=== PATIENT | female | born 1980 | race American Indian/Alaskan Native ===

== ENCOUNTER 2017-10-13 09:28 | Outpatient (CLI) | payer SELFPAY ==
[2017-10-13 12:20] VITALS: BP 112/61
--- NOTE | 2017-10-13 12:48 | Ultrasound Report ---
ULTRASOUND BIOPHYSICAL PROFILE: History: ZAC, variables Technique: Transabdominal ultrasound with Doppler interrogation. 2 - breathing movements 2 - movements 2 - posture and tone 2 - Qualitative amniotic fluid volume 8 - TOTAL SCORE OF POSSIBLE 8 Heart Rate (bpm) 143
--- NOTE | 2017-10-13 12:49 | Ultrasound Report ---
ULTRASOUND OB LIMITED History: ZAC and variables Technique: Transabdominal ultrasound with Doppler interrogation. Gestation: Single Position: Cephalic Amniotic Fluid: Within normal limits ZAC = 13.8 cm Heart Rate: 143 BPM
== END 2017-10-13 12:40 | disposition home or self-care (01) ==
LOC: TRG 09:28
PROVIDERS: ATTEND Obstetrics & Gynecology
DX: O47.1 False labor at or after 37 completed weeks of gestation (principal); Z3A.39 39 weeks gestation of pregnancy
CPT/HCPCS: 59025; 76815; 76819

== ENCOUNTER 2017-10-14 05:58 | Inpatient (IN) | payer SELFPAY ==
[2017-10-14] MEDS ORDERED: MINERAL OIL PO PRN (06:18)
[2017-10-14] MEDS ORDERED: ePHEDrine SULFATE IV PRN ×2 (06:18→09:00)
[2017-10-14] MEDS ORDERED: XYLOCAINE 2% INFILTRATI ONE (06:18)
[2017-10-14] MEDS ORDERED: BRETHINE IVP PRN (06:18)
[2017-10-14] MEDS ORDERED: STADOL IV PRN (06:18)
[2017-10-14] MEDS ORDERED: POLYCILLIN/NS 2 GM/100 ML 2 GM/100 ML BAG IV ONE (06:18)
[2017-10-14] MEDS ORDERED: BRETHINE SUB-Q PRN (06:18)
[2017-10-14] MEDS: LACTATED RINGERS 1,000 ML IV SCH ×3 (06:30→08:52)
[2017-10-14 06:47] LABS: Hemoglobin 12.6 gm/dl (10.1-14.3); Mean Corpuscular HGB Conc 33 % (30-34); Mean Corpuscular Hemoglobin 26 pg (28-32); Mean Corpuscular Volume 80 fl (79-97); Red Blood Count 4.78 M/mm3 (3.65-5.03); Red Cell Distribution Width 17.6 % (13.2-15.2)
--- NOTE | 2017-10-14 06:52 | History and Physical Report ---
History of Present Illness Date of admission: 10/14/17 06:36 Chief complaint: uterine contractions History of present illness: 36yo at 39 2/7weeks presents in labor /-2, GBS+ She was admitted with routine labs and ampicillin for GBS prophylaxis. She denies any vaginal bleeding, loss of fluid and reports good movement. She is a patient at [facility]. Past History Past Surgical History: no surgical history - Obstetrical History : 2 Hx # Term Pregnancies: 1 #1 Method of Delivery: Vaginal Medications and Allergies Allergies Allergy/AdvReac Type Severity Reaction Status Date / Time shellfish derived Allergy Itching Verified 10/13/17 10:13 Home Medications Medication Instructions Recorded Confirmed Last Taken Type Vit-Fe Fumar-FA [ 1 tab PO QDAY 10/13/17 10/13/17 10/12/17 21: 00 History Vitamin] 1 Active Meds: Active Medications Butorphanol Tartrate (Stadol) 2 mg IV Q2H PRN PRN Reason: Pain , Severe (7-10) Ephedrine Sulfate (Ephedrine Sulfate) 10 mg IV Q2M PRN PRN Reason: Hypotension Ampicillin Sodium (Ampicillin/Ns 1 Gm/50 Ml) 1 gm in 50 mls @ 100 mls/hr IV Q4HR [place]; Protocol Ampicillin Sodium (Polycillin/Ns 2 Gm/100 Ml) 2 gm in 100 mls @ 100 mls/hr IV ONCE ONE; Protocol Stop: 10/14/17 07:17 Lactated Ringer's (Lactated Ringers) 1,000 mls @ 125 mls/hr IV DIRECT [place] Last Admin: 10/14/17 06:30 Dose: 125 mls/hr Oxytocin/Sodium Chloride (Pitocin/Ns 20 Unit/1000ml Drip) 20 units in 1,000 mls @ 125 mls/hr IV DIRECT [place] Mineral Oil (Mineral Oil) 30 ml PO QHS PRN PRN Reason: Constipation Terbutaline Sulfate (Brethine) 0.25 mg SUB-Q ONCE PRN PRN Reason: Hyperstimulation/Hypertonicity Terbutaline Sulfate (Brethine) 0.25 mg IVP ONCE PRN PRN Reason: Hyperstimulation/Hypertonicity - Vital Signs Vital signs: Vital Signs Pulse BP 100 H 119/71 10/14/17 06:20 10/14/17 06:20 Temp Pulse Resp BP Pulse Ox 100 H 119/71 10/14/17 06:20 10/14/17 06:20 - Obstetrical FHR: auscultation normal Uterine Contraction Pattern: Irregular Results Result Diagrams: 10/14/17 06:30 All other labs normal. Assessment and Plan - Patient Problems (1) 39 weeks gestation of Current Visit: Yes Status: Acute Plan to address problem: Routine labs Stadol for pain Anticipate (2) Thrombocytopenia Current Visit: Yes Status: Acute Plan to address problem: Asymptomatic - will monitor. Repeat platelets . (3) GBS bacteriuria Current Visit: Yes Status: Acute Plan to address problem: Ampicillin for GBS prophylaxis.
[2017-10-14 06:56] LABS: Platelet Count 125 K/mm3 (140-440)
[2017-10-14] MEDS ORDERED: PITOCin/NS 20 UNIT/1000ML DRIP 20 UNITS/1,000 ML BAG IV SCH (07:00)
--- NOTE | 2017-10-14 08:48 | Anesthesia Consultation ---
Anesthesia Consult and Med Hx Date of service: 10/14/17 - Airway Anesthetic Teeth Evaluation: Good ROM Head & Neck: Adequate Mental/Hyoid Distance: Adequate Mallampati Class: Class II Intubation Access Assessment: Probably Good - Pre-Operative Health Status ASA Pre-Surgery Classification: ASA2 Proposed Anesthetic Plan: Epidural, Spinal - Pulmonary Hx Asthma: No COPD: No Hx Pneumonia: No - Cardiovascular System Hx Hypertension: No - Central Nervous System Hx Seizures: No Hx Psychiatric Problems: No - Endocrine Hx Renal Disease: No Hx End Stage Renal Disease: No Hx Hypothyroidism: No Hx Hyperthyroidism: No - Hematic Hx Anemia: No Hx Sickle Cell Disease: No - Other Systems Hx Alcohol Use: No
[2017-10-14] MEDS ORDERED: fentaNYL-BUPIV 2 MCG/ML-0.125% 200 MCG/100 ML BAG EPIDURAL SCH (09:00)
[2017-10-14] MEDS ORDERED: NARCAN 2 MG/2 ML IV PRN (09:00)
[2017-10-14] MEDS ORDERED: PITOCin/NS 30 UNIT/500ML 30 UNITS/500 ML BAG IV SCH (10:00)
[2017-10-14] MEDS ORDERED: AMPICILLIN/NS 1 GM/50 ML 1 GM/50 ML BAG IV SCH (10:19)
--- NOTE | 2017-10-14 14:34 | Procedure Note ---
OB Delivery Note - Delivery Date of Delivery: 10/14/17 (14:19) Surgeon: BEATRICE BECK (CHASITY) Estimated blood loss: 100cc - Vaginal Delivery presentation: vertex Delivery position: OA Intrapartum events: none Delivery induction: none Delivery augmentation: pitocin Delivery monitor: external FHT, external uterine Route of delivery: (14:19) Delivery placenta: spontaneous (14:24) Delivery cord: 3 umbilical vessels Delivery laceration: 1st degree (small, left unrepaired) Anesthesia: none, epidural Delivery comments: viable female SPRING position at 14:19 under epidural anesthesia. placed [id number] on mothers abdomen. Delayed cord clamping. Cut by pt' s sister in law with guidance. Spontaneous jones delivery of intact placenta at 14:24. 3VC. Cord blood collected per hospital protocol. FF@U-2, small lochia. Small 1st degree perineal laceration left unrepaired. EBL 100ml. - A at 1 minute: 8 at 5 minutes: 9 Gender: Female (6lbs 9oz, 2981 grams, 19")
[2017-10-14] MEDS ORDERED: TUCKS PAD TP PRN (14:35)
[2017-10-14] MEDS ORDERED: DULCOLAX PR PRN (14:35)
[2017-10-14] MEDS ORDERED: NORCO 5/325 PO PRN (14:35)
[2017-10-14] MEDS ORDERED: TYLENOL PO PRN (14:35)
[2017-10-14] MEDS ORDERED: MILK OF MAGNESIA PO PRN (14:35)
[2017-10-14] MEDS ORDERED: PHENERGAN PO PRN (14:35)
[2017-10-14] MEDS ORDERED: BENADRYL PO PRN (14:35)
[2017-10-14] MEDS ORDERED: LANSINOH TP PRN (14:35)
[2017-10-14] MEDS ORDERED: SODIUM CHLORIDE FLUSH SYRINGE 10 ML IV NR (15:00)
[2017-10-14] MEDS: MOTRIN PO SCH ×2 (17:39→23:57)
[2017-10-15 02:48] LABS: Hematocrit 34.6 % (30.3-42.9); Hemoglobin 11.2 gm/dl (10.1-14.3)
[2017-10-15] MEDS: MOTRIN PO SCH ×2 (05:59→12:30)
[2017-10-15] MEDS ORDERED: DEPO-PROVERA (CONTRACEPTION) IM ONE ×2 (10:20→19:00)
--- NOTE | 2017-10-15 10:24 | Progress Note ---
Assessment and Plan A: PP Day #1 Stable P: Follow Routine Orders Depo Provera prior to discharge D/C home to per patient request RTO in 6 Weeks Subjective - Subjective Date of service: 10/15/17 Patient reports: appetite normal, voiding normally, pain well controlled, flatus , bowel movement, ambulating normally [place]: doing well Objective - Vital Signs Latest vital signs: Vital Signs Temp Pulse Resp BP BP Pulse Ox 10/15/17 05:59 18 10/15/17 00:30 98.6 F 77 16 101/79 10/14/17 19:30 98.7 F 71 16 99/78 10/14/17 17:39 20 10/14/17 16:38 99.4 F 76 20 119/68 100 10/14/17 16:06 79 100 10/14/17 16:01 78 120/57 100 10/14/17 15:56 89 98 10/14/17 15:51 91 H 100 10/14/17 15:46 84 131/61 100 10/14/17 15:45 98.7 F 10/14/17 15:41 80 100 10/14/17 15:36 81 100 10/14/17 15:31 81 138/62 100 10/14/17 15:26 89 100 10/14/17 15:16 92 H 135/67 10/14/17 15:01 84 133/70 10/14/17 14:50 94 10/14/17 14:47 87 100 10/14/17 14:42 93 H 100 10/14/17 14:39 97.7 F 10/14/17 14:37 93 H 100 10/14/17 14:31 89 86 10/14/17 14:28 99 H 100 10/14/17 14:23 89 99 10/14/17 14:19 130 H 227/143 10/14/17 14:18 126 H 99 10/14/17 14:13 93 H 100 10/14/17 14:10 96 H 135/78 10/14/17 14:08 99 H 100 10/14/17 14:04 89 134/58 10/14/17 14:03 85 100 10/14/17 13:59 86 132/60 10/14/17 13:58 82 100 10/14/17 13:54 86 119/83 07/24/18 13:53 89 100 07/24/18 13:50 82 147/59 07/24/18 13:48 89 100 07/24/18 13:45 85 113/60 07/24/18 13:43 83 100 07/24/18 13:41 76 124/69 07/24/18 13:38 75 100 07/24/18 13:34 75 111/68 07/24/18 13:33 77 100 07/24/18 13:29 75 115/64 07/24/18 13:28 77 100 07/24/18 13:24 81 119/67 07/24/18 13:23 89 100 07/24/18 13:21 83 130/64 07/24/18 13:18 92 H 100 07/24/18 13:14 80 124/63 07/24/18 13:13 83 100 07/24/18 13:11 74 123/62 07/24/18 13:08 72 100 07/24/18 13:05 78 105/64 07/24/18 13:03 78 100 07/24/18 12:59 75 110/63 07/24/18 12:58 77 100 07/24/18 12:53 90 100 07/24/18 12:49 82 115/70 07/24/18 12:48 81 100 07/24/18 12:45 74 119/61 07/24/18 12:43 83 100 07/24/18 12:40 81 127/66 07/24/18 12:38 88 100 07/24/18 12:35 73 123/60 07/24/18 12:33 89 99 07/24/18 12:30 69 117/72 07/24/18 12:28 113 H 100 07/24/18 12:24 81 114/73 07/24/18 12:23 84 100 07/24/18 12:19 90 114/70 07/24/18 12:18 102 H 100 07/24/18 12:15 85 116/73 07/24/18 12:13 80 100 07/24/18 12:09 82 110/71 07/24/18 12:08 74 100 07/24/18 12:04 110 H 96/62 07/24/18 12:03 111 H 100 07/24/18 11:59 91 H 122/67 87 07/24/18 11:58 86 100 07/24/18 11:55 88 111/73 10/14/17 11:53 118 H 100 10/14/17 11:49 109 H 72/46 10/14/17 11:48 123 H 100 10/14/17 11:45 75 119/70 10/14/17 11:43 98 H 100 10/14/17 11:39 70 112/67 10/14/17 11:38 78 100 10/14/17 11:33 88 100 10/14/17 11:32 110 H 87 10/14/17 11:29 80 111/66 10/14/17 11:28 84 100 10/14/17 11:27 104 H 0 L 10/14/17 11:24 84 121/68 10/14/17 11:23 124 H 100 10/14/17 11:18 76 100 10/14/17 11:15 94 10/14/17 11:13 93 H 100 10/14/17 11:10 64 77 L 10/14/17 11:09 86 105/58 10/14/17 11:08 100 10/14/17 11:04 95 H 115/73 10/14/17 11:03 91 H 100 10/14/17 10:59 100 H 115/68 78 L 10/14/17 10:58 90 99 10/14/17 10:55 81 124/57 10/14/17 10:53 92 H 100 10/14/17 10:50 84 112/70 10/14/17 10:48 93 H 100 10/14/17 10:44 75 123/69 10/14/17 10:43 89 100 10/14/17 10:39 65 117/67 10/14/17 10:38 69 100 10/14/17 10:35 63 112/67 10/14/17 10:33 67 100 10/14/17 10:29 67 110/65 10/14/17 10:28 70 100 10/14/17 10:24 63 110/64 Intake and Output 10/14/17 10/15/17 10/15/17 22:59 06:59 14:59 Intake Total 240 500 Output Total 800 Balance -560 500 Intake: Oral 240 200 Intake, Free Water 300 Output: Urine 800 Void 800 Other: Total, Intake Amount 240 200 Total, Output Amount 800 # Voids Void 1 - Exam Breasts: Present: normal Cardiovascular: Present: Regular rate Lungs: Present: Clear to auscultation, Normal air movement Abdomen: Present: normal appearance, soft, normal bowel sounds Uterus: Present: normal, firm, fundal height below umbilicus Extremities: Present: normal
--- NOTE | 2017-10-15 10:25 | Discharge Summary ---
Providers - Providers Date of Admission: 10/14/17 06:36 Date of discharge: 10/15/17 Attending physician: MARTIN ROJAS MD Primary care physician: MARTIN ROJAS MD Hospitalization Reason for admission: active labor Delivery: Episiotomy: none Laceration: 1st degree Other procedures: none complications: none Discharge diagnosis: IUP at term delivered [place] baby: female Condition at discharge: Good Disposition: DC-01 TO HOME OR SELFCARE Plan - Provider Discharge Summary Activity: routine, no sex for 6 weeks, no heavy lifting 4 weeks, no strenuous exercise Diet: routine Instructions: routine Additional instructions: [] Smoking cessation referral if applicable(refer to patient education folder for contact #) [] Refer to [facility]'s [facility] Booklet Call your doctor immediately for: * Fever > 100.5 * Heavy vaginal bleeding ( >1 pad per hour) * Severe persistent headache * Shortness of breath * Reddened, hot, painful area to leg or breast * Drainage or odor from incision. * Keep incision clean and dry at all times and follow doctor's instructions regarding bathing/showering - Follow up plan Follow up: MARTIN ROJAS MD [Primary Care Provider] - 6 Weeks
[2017-10-15 18:43] VITALS: BP 105/72
== END 2017-10-15 20:30 | disposition home or self-care (01) | DRG 775 ==
LOC: TRG 05:58 → LD 06:36 → TRG 06:36 → OB 16:28
PROVIDERS: ADMIT Obstetrics & Gynecology; ATTEND Obstetrics & Gynecology
PROC: 10E0XZZ Delivery of Products of Conception, External Approach (ICD-10-PCS; principal; 2017-10-14)
PROC: 3E0R3BZ Introduction of Anesthetic Agent into Spinal Canal, Percutaneous Approach (ICD-10-PCS; 2017-10-14)
PROC: 00HU33Z Insertion of Infusion Device into Spinal Canal, Percutaneous Approach (ICD-10-PCS; 2017-10-14)
DX: O99.824 Streptococcus B carrier state complicating childbirth (principal); O99.12 Other diseases of the blood and blood-forming organs and certain disorders involving the immune mechanism complicating childbirth; Z3A.39 39 weeks gestation of pregnancy; D69.6 Thrombocytopenia, unspecified; Z37.0 Single live birth; Z91.013 Allergy to seafood; O70.0 First degree perineal laceration during delivery
CPT/HCPCS: 36415; 85014; 85018; 85027; 86592; 86850; 86900; 86901; 99211; G0463; J0290; J1050; J2590; J7120